=== PATIENT | female | born 2000 | race Caucasian/White ===

== ENCOUNTER 2022-03-14 11:16 | Inpatient (IN) | payer OTHER ==
[2022-03-14] MEDS ORDERED: Metoclopramide HCl 10 MG/2 ML VIAL ONE (11:46)
[2022-03-14 11:53] LABS: #Basophils 0.1 thou/uL (0.0-0.2); #Lymphocytes 1.3 thou/uL (1.20-3.40); #Monocytes 0.4 thou/uL (0.11-0.59); #Neutrophils 4.4 thou/uL (1.40-6.50); %Basophils 0.9 % (0.0-1.0); %Monocytes 6.9 % (0.0-4.0); %Neutrophils 71.2 % (31.0-61.0); Hemoglobin 14.1 g/dL (12.0-16.0); Mean Corpuscular HGB CONC 33.3 g/dL (32.0-36.0); Mean Corpuscular Hemoglobin 30.9 pg (25.0-35.0); Mean Platelet Volume 6.9 fL (7.4-10.4); Platelet Count 315 thou/uL (130-400); RBC Distribution Width 11.1 % (11.5-14.5); Red Blood Cell (RBC) Count 4.55 mill/uL (4.00-5.20); White Blood Cell (WBC) Count 6.2 thou/uL (4.8-10.8)
[2022-03-14 11:59] LABS: BHCG - Serum Negative (NEGATIVE); Pregs Control Background? CLEAR/WHITE (CLR/WHITE); Pregs Control Bar Appear? YES (CONTROL BAR)
[2022-03-14 12:29] LABS: ALT (SGPT) 39 U/L (8-55); AST (SGOT) 28 U/L (5-34); Albumin 4.6 g/dL (3.5-5.0); Alkaline Phosphatase 59 U/L (40-100); Anion Gap 20 mmol/L (10-20); BUN (Urea Nitrogen) 19 mg/dL (7.0-18.7); Bilirubin, Total 1.1 mg/dL (0.2-1.2); Calc. Creatinine Clearance 0 mL/min (70-130); Calcium 9.8 mg/dL (7.8-10.44); Carbon Dioxide 19 mmol/L (22-29); Globulin 3.2 g/dL (2.4-3.5); Glucose 75 mg/dL (70-105); Lipase 69 U/L (8-78); Potassium 3.5 mmol/L (3.5-5.1); Protein, Total 7.8 g/dL (6.0-8.3)
[2022-03-14] MEDS ORDERED: Capsaicin 0.025% Cream 60 gm Tube TOP SCH (12:30)
[2022-03-14 12:38] LABS: Chloride 104 mmol/L (98-107); Sodium 139 mmol/L (136-145)
[2022-03-14 12:49] LABS: Bacteria/HPF None Seen HPF (None Seen); Bilirubin Negative (Negative); Blood, Urine 2+ (Negative); Clarity Clear (Clear); Glucose, Urine (Dipstick) Normal (Negative); Ketone, Urine Greater than 150 mg/dL (Negative); Leukocyte Negative Leu/uL (Negative); Nitrite Negative (Negative); Protein, Urine (Dipstick) 20 mg/dL (Neg-Trace); RBC/HPF 0-3 HPF (0-3); Specific Gravity, Urine 1.023 (1.002-1.036); Squamous Epithelial 0-3 HPF (0-3); Urobilinogen Normal mg/dL (Less than 2); WBC/HPF 0-3 HPF (0-3)
[2022-03-14] MEDS ORDERED: Haloperidol Lactate 5 MG/ML VIAL ONE (13:10)
[2022-03-14] MEDS ORDERED: Lorazepam 2 MG/ML VIAL ONE (14:31)
[2022-03-14 17:03] VITALS: BMI 21.6
[2022-03-14] MEDS ORDERED: Lorazepam 2 MG/ML VIAL SLOW IVP SCH (18:00)
[2022-03-14] MEDS ORDERED: Ondansetron ODT 4 MG TAB PO PRN (18:13)
[2022-03-14] MEDS ORDERED: Acetaminophen 325 MG TAB PO PRN (18:14)
[2022-03-14] MEDS ORDERED: Sodium Chloride 0.9% 1,000 ML IV SCH (18:15)
[2022-03-14] MEDS ORDERED: Ondansetron PF 4 MG/2 ML Vial IVP PRN (18:40)
[2022-03-14] MEDS: D5 LR w/20 mEq KCL 1,000 ML IV SCH (19:29)
[2022-03-14] MEDS ORDERED: Famotidine 20 MG TAB PO SCH (21:00)
[2022-03-14] MEDS: Sucralfate 1 GM TAB PO SCH (21:23)
[2022-03-14] MEDS: metroNIDAZOLE 500 MG in Premix Bag 1 BAG IVPB SCH (21:24)
[2022-03-14] MEDS: Famotidine 20 MG TAB PO SCH (21:24)
[2022-03-15] MEDS: D5 LR w/20 mEq KCL 1,000 ML IV SCH ×4 (04:11→23:55)
[2022-03-15] MEDS: metroNIDAZOLE 500 MG in Premix Bag 1 BAG IVPB SCH ×2 (05:01→13:34)
[2022-03-15 06:33] LABS: Anion Gap 10 mmol/L (10-20); BUN (Urea Nitrogen) 8 mg/dL (7.0-18.7); Calc. Creatinine Clearance 108 mL/min (70-130); Calcium 8.9 mg/dL (7.8-10.44); Carbon Dioxide 27 mmol/L (22-29); Chloride 105 mmol/L (98-107); Glucose 80 mg/dL (70-105); Potassium 3.1 mmol/L (3.5-5.1); Sodium 139 mmol/L (136-145)
[2022-03-15] MEDS: Promethazine HCl 25 MG in Sodium Chloride 0.9% 50 ML IVPB PRN ×2 (06:37→22:56)
[2022-03-15 07:14] LABS: Hemoglobin 12.1 g/dL (12.0-16.0); Lymphocytes 62 % (28-48); MDiff Complete? YES; Mean Corpuscular HGB CONC 33.8 g/dL (32.0-36.0); Mean Corpuscular Hemoglobin 31.4 pg (25.0-35.0); Mean Platelet Volume 6.8 fL (7.4-10.4); Monocytes 5 % (0-4); Neutrophil 33 % (31-61); Platelet Count 251 thou/uL (130-400); Platelet Morphology Comment Appears Adequate; RBC Distribution Width 11.2 % (11.5-14.5); RBC Morphology Normal; Red Blood Cell (RBC) Count 3.85 mill/uL (4.00-5.20); White Blood Cell (WBC) Count 6.2 thou/uL (4.8-10.8)
[2022-03-15] MEDS: Bupropion 150 MG XL TAB PO SCH (08:49)
[2022-03-15] MEDS: FLUoxetine HCl 20 MG CAP PO SCH (08:49)
[2022-03-15] MEDS: Enoxaparin Sodium 40 MG/0.4 ML SYRINGE SC SCH (08:49)
[2022-03-15] MEDS: Famotidine 20 MG TAB PO SCH ×2 (08:49→20:41)
[2022-03-15] MEDS: Sucralfate 1 GM TAB PO SCH ×4 (08:49→20:41)
[2022-03-16] MEDS ORDERED: rOPINIRole HCl 0.5 MG TAB PO SCH (01:00)
[2022-03-16 06:25] LABS: Anion Gap 12 mmol/L (10-20); BUN (Urea Nitrogen) 4 mg/dL (7.0-18.7); Calc. Creatinine Clearance 108 mL/min (70-130); Calcium 9.1 mg/dL (7.8-10.44); Carbon Dioxide 27 mmol/L (22-29); Chloride 106 mmol/L (98-107); Glucose 105 mg/dL (70-105); Potassium 3.5 mmol/L (3.5-5.1); Sodium 141 mmol/L (136-145)
[2022-03-16] MEDS: D5 LR w/20 mEq KCL 1,000 ML IV SCH (08:14)
[2022-03-16] MEDS: Famotidine 20 MG TAB PO SCH (08:32)
[2022-03-16] MEDS: Sucralfate 1 GM TAB PO SCH ×2 (08:32→13:12)
[2022-03-16] MEDS: FLUoxetine HCl 20 MG CAP PO SCH (08:33)
[2022-03-16] MEDS: Enoxaparin Sodium 40 MG/0.4 ML SYRINGE SC SCH (08:33)
[2022-03-16] MEDS: Bupropion 150 MG XL TAB PO SCH (08:33)
[2022-03-16] MEDS ORDERED: Ciprofloxacin 500 MG TAB PO SCH ×2 (11:15→20:00)
[2022-03-16 14:22] VITALS: BP 104/69; TEMP 98.9
[2022-03-16] MEDS ORDERED: metroNIDAZOLE 500 MG TAB PO SCH (15:00)
== END 2022-03-16 14:53 | disposition home or self-care (01) | DRG 392 ==
LOC: ERS 11:16 → T4-A 14:27 → OBSVTOIN 03-16 12:55
PROVIDERS: ADMIT Internal Medicine; ATTEND Internal Medicine
DX: R11.2 Nausea with vomiting, unspecified (principal); E87.2 Acidosis; Z20.822 Contact with and (suspected) exposure to COVID-19; K21.9 Gastro-esophageal reflux disease without esophagitis; F41.9 Anxiety disorder, unspecified; F39 Unspecified mood [affective] disorder; E86.0 Dehydration; F12.10 Cannabis abuse, uncomplicated; Z79.899 Other long term (current) drug therapy; Z71.51 Drug abuse counseling and surveillance of drug abuser
CPT/HCPCS: 36415; 76705; 80048; 80053; 81003; 81015; 83630; 83690; 84703; 85025; 93005; 94760; 96361; 96365; 96366; 96367; 96372; 96374; 96375; 96376; G0378; J1630; J1650; J1956; J2060; J2405; J2550; J2765; J3480; J7050; U0003; U0005

== ENCOUNTER 2024-02-08 20:29 | Emergency (ER) | payer OTHER ==
[2024-02-08 23:14] LABS: #Basophils Less than 0.03 10x3/uL (0.0-0.2); #Eosinphils Less than 0.03 10x3/uL (0.0-0.7); %Basophils 0.1 % (0.0-1.0); %Lymphocytes 7.4 % (21.0-51.0); %Monocytes 0.8 % (0.0-10.0); %Neutrophils 91.4 % (42.0-75.0); Hematocrit 38.7 % (36.0-47.0); Mean Corpuscular HGB CONC 36.2 g/dL (32.0-36.0); Mean Corpuscular Hemoglobin 31.2 pg (27.0-31.0); Mean Corpuscular Volume 86.2 fL (78.0-98.0); Platelet Count 309 10x3/uL (130-400); RBC Distribution Width 11.8 % (11.5-14.5); Red Blood Cell (RBC) Count 4.49 mill/uL (4.20-5.40)
[2024-02-08 23:25] LABS: ALT (SGPT) 24 U/L (8-55); AST (SGOT) 24 U/L (5-34); Albumin 4.4 g/dL (3.5-5.0); Alkaline Phosphatase 34 U/L (40-110); Anion Gap 16 mmol/L (10-20); BUN (Urea Nitrogen) 20 mg/dL (7.0-18.7); Bilirubin, Total 0.7 mg/dL (0.2-1.2); Calc. Creatinine Clearance 0 mL/min (70-130); Calcium 9.3 mg/dL (7.8-10.44); Carbon Dioxide 17 mmol/L (22-29); Chloride 110 mmol/L (98-107); Estimated GFR 91; Globulin 3.2 g/dL (2.4-3.5); Glucose 160 mg/dL (70-105); Lipase 27 U/L (8-78); Potassium 4.1 mmol/L (3.5-5.1); Protein, Total 7.6 g/dL (6.0-8.3); Sodium 139 mmol/L (136-145)
[2024-02-08 23:34] LABS: BHCG - Serum Negative (NEGATIVE); Pregs Control Background? CLEAR/WHITE (CLR/WHITE); Pregs Control Bar Appear? YES (CONTROL BAR)
[2024-02-09] MEDS ORDERED: diphenhydrAMINE 50 MG/ML VIAL ONE (00:11)
[2024-02-09] MEDS ORDERED: Haloperidol Lactate 5 MG/ML VIAL ONE (00:11)
[2024-02-09] MEDS ORDERED: Metoclopramide HCl 10 MG (2 mL) VIAL ONE (00:12)
== END 2024-02-09 00:55 | disposition home or self-care (01) ==
LOC: ERS 20:29
DX: R11.2 Nausea with vomiting, unspecified (principal); Z87.891 Personal history of nicotine dependence
CPT/HCPCS: 80053; 83690; 84703; 85025; 93005; 96365; 96375; J1200; J1630; J2765